=== PATIENT | female | born 1980 | race Asian ===

== ENCOUNTER 2020-03-28 10:38 | Emergency (ER) | payer MEDICAID ==
[~2020-03-28] VITALS: Ht 152.4 cm; Wt 64.0 kg
[2020-03-28 11:22] LABS: BASOPHILS % 0.3 % (0.0-2.0); EOSINOPHILS % 1.1 % (0.0-5.0); HEMATOCRIT. 25.9 % (36.0-48.0); HEMOGLOBIN. 7.9 g/dL (12.0-16.0); MEAN CORPUSCULAR HEMOGLOBIN 19.7 pg (28.0-32.0); MEAN CORPUSCULAR VOLUME 64.7 fL (81.0-99.0); MONOCYTES % 6.8 % (2.0-8.0); NEUTROPHILS % 67.8 % (40.0-76.0); PLATELET 423 x1000/uL (130-400); RED CELL DISTRIBUTION WIDTH 18.7 % (11.6-14.6)
[2020-03-28 11:28] LABS: CHLORIDE 106 mEq/L (98-107)
[2020-03-28] MEDS ORDERED: KETOROLAC 30MG/ML VIAL IV STA (11:28)
[2020-03-28] MEDS ORDERED: SODIUM CHLORIDE 0.9% 1,000 ML IV ONE (11:28)
[2020-03-28 11:31] LABS: PROTHROMBIN TIME 10.3 sec (9.6-11.0)
[2020-03-28 11:40] LABS: ETHANOL BLOOD < 10 mg/dL
[2020-03-28 11:52] LABS: HCG SCREEN NEGATIVE
[2020-03-28 12:48] LABS: CLARITY URINE CLOUDY (CLEAR); COLOR URINE YELLOW (YELLOW); KETONES URINE NEGATIVE (NEGATIVE); LEUKOCYTE ESTERASE URINE 1+ (NEGATIVE); NITRITE URINE NEGATIVE (NEGATIVE); OCCULT BLOOD URINE 3+ (NEGATIVE); PROTEIN URINE NEGATIVE (NEGATIVE); SPECIFIC GRAVITY URINE 1.015 (1.005-1.030); UROBILINOGEN URINE 0.2 E.U./dL (0.2-1.0)
[2020-03-28] MEDS ORDERED: CEFTRIAXONE 1 G PREMIX 50 ML IV ONE (13:30)
[2020-03-28 13:35] LABS: *AMPHETAMINES SCREEN URINE NEGATIVE (NEGATIVE); *BARBITURATES SCREEN URINE NEGATIVE (NEGATIVE); *BENZODIAZEPINES SCREEN URINE NEGATIVE (NEGATIVE); *COCAINE SCREEN URINE NEGATIVE (NEGATIVE); METHADONE URINE SCREEN NEGATIVE (NEGATIVE); PHENCYCLIDINE URINE SCREEN NEGATIVE (NEGATIVE)
[2020-03-28 13:36] LABS: CANNABINOID URINE SCREEN NEGATIVE (NEGATIVE)
[2020-03-28 13:42] LABS: OPIATES URINE SCREEN NEGATIVE (NEGATIVE)
[2020-03-28 13:43] LABS: PLATELET ESTIMATE SLIGHTLY INCREASED
[2020-03-28 16:45] VITALS: BP 104/70
== END 2020-03-28 17:23 | disposition home or self-care (01) ==
LOC: ER 10:38
DX: S90.112A Contusion of left great toe without damage to nail, initial encounter (principal); R10.9 Unspecified abdominal pain; Z98.890 Other specified postprocedural states; X58.XXXA Exposure to other specified factors, initial encounter; Y93.89 Activity, other specified; Y92.89 Other specified places as the place of occurrence of the external cause; Y99.8 Other external cause status
CPT/HCPCS: 36415; 73660; 74176; 80053; 80305; 80320; 81003; 81025; 83690; 84703; 85025; 85610; 93005; 96361; 96365; 96375; 99285; J0696; J1885; J7030; G0480

== ENCOUNTER 2021-04-16 22:54 | Emergency (ER) | payer MEDICAID, OTHER ==
[~2021-04-16] VITALS: Ht 165.1 cm; Wt 68.0 kg
[2021-04-17] MEDS ORDERED: KETOROLAC 30MG/ML VIAL IV STA (00:59)
[2021-04-17] MEDS ORDERED: SODIUM CHLORIDE 0.9% 1,000 ML IV ONE (01:00)
[2021-04-17 01:24] LABS: BASOPHILS % 0.3 % (0.0-2.0); EOSINOPHILS % 2.9 % (0.0-5.0); HEMATOCRIT. 33.2 % (36.0-48.0); HEMOGLOBIN. 11.1 g/dL (12.0-16.0); LYMPHOCYTES % 26.2 % (20.0-50.0); MEAN CORPUSCULAR HEMOGLOBIN 26.4 pg (28.0-32.0); MEAN CORPUSCULAR VOLUME 78.9 fL (81.0-99.0); MEAN PLATELET VOLUME 7.4 fl (7.4-10.4); MONOCYTES % 6.9 % (2.0-8.0); NEUTROPHILS % 63.7 % (40.0-76.0); PLATELET 304 x1000/uL (130-400); RED BLOOD CELL COUNT 4.21 mill/uL (4.2-5.4); RED CELL DISTRIBUTION WIDTH 16.9 % (11.6-14.6)
[2021-04-17 01:31] LABS: CHLORIDE 107 mEq/L (98-107)
[2021-04-17 01:36] LABS: CLARITY URINE CLOUDY (CLEAR); COLOR URINE YELLOW (YELLOW); KETONES URINE TRACE (NEGATIVE); LEUKOCYTE ESTERASE URINE NEGATIVE (NEGATIVE); NITRITE URINE NEGATIVE (NEGATIVE); OCCULT BLOOD URINE NEGATIVE (NEGATIVE); PROTEIN URINE NEGATIVE (NEGATIVE); SPECIFIC GRAVITY URINE 1.027 (1.005-1.030); UROBILINOGEN URINE 0.2 E.U./dL (0.2-1.0)
[2021-04-17 01:37] LABS: HCG SCREEN NEGATIVE
[2021-04-17] MEDS ORDERED: IBUP-2029 MT ×2 (04:25)
[2021-04-17 04:40] VITALS: BP 129/84
[2021-05-17] MEDS ORDERED: HYDR-4001 PO (15:36)
[2021-05-20] MEDS ORDERED: IBUP-2029 MT (09:00)
== END 2021-04-17 04:41 | disposition home or self-care (01) ==
LOC: ER 22:54
DX: N83.202 Unspecified ovarian cyst, left side (principal); I49.9 Cardiac arrhythmia, unspecified; Z98.890 Other specified postprocedural states
CPT/HCPCS: 36415; 76830; 76856; 80053; 81003; 81025; 83690; 84703; 85025; 93005; 96361; 96374; 99284; J1885; J7030

== ENCOUNTER → 2021-05-15 | Outpatient (CLI) | payer OTHER ==
[~2021-05-15] MED LIST: HYDR-4001 PO; IBUP-2029 MT
== END | disposition home or self-care (01) ==
LOC: LAB 10:55
PROVIDERS: ATTEND Obstetrics & Gynecology
DX: Z01.812 Encounter for preprocedural laboratory examination (principal); Z20.822 Contact with and (suspected) exposure to COVID-19
CPT/HCPCS: 87426

== ENCOUNTER 2021-11-29 01:46 | Emergency (ER) | payer MEDICAID, OTHER ==
[~2021-11-29] VITALS: Ht 162.6 cm; Wt 63.1 kg
[2021-11-29] MEDS ORDERED: ONDANSETRON HCL 4MG/2ML INJ IV ONE (04:15)
[2021-11-29] MEDS ORDERED: MORPHINE SULFATE 4 MG/ML CPJ (NOT FOR IM USE) IV ONE (04:15)
[2021-11-29 04:23] LABS: BASOPHILS % 0.2 % (0.0-2.0); EOSINOPHILS % 3.2 % (0.0-5.0); HEMATOCRIT. 31.2 % (36.0-48.0); HEMOGLOBIN. 10.1 g/dL (12.0-16.0); LYMPHOCYTES % 28.2 % (20.0-50.0); MEAN CORPUSCULAR HEMOGLOBIN 24.6 pg (28.0-32.0); MEAN CORPUSCULAR VOLUME 76.3 fL (81.0-99.0); MEAN PLATELET VOLUME 7.1 fl (7.4-10.4); MONOCYTES % 8.3 % (2.0-8.0); NEUTROPHILS % 60.1 % (40.0-76.0); PLATELET 323 x1000/uL (130-400); RED BLOOD CELL COUNT 4.09 mill/uL (4.2-5.4); RED CELL DISTRIBUTION WIDTH 16.8 % (11.6-14.6)
[2021-11-29 04:43] LABS: CHLORIDE 107 mEq/L (98-107)
[2021-11-29 06:50] LABS: HCG SCREEN NEGATIVE
[2021-11-29] MEDS ORDERED: TOPUD PO (07:45)
[2021-11-29 08:15] VITALS: BP 128/83
== END 2021-11-29 08:43 | disposition home or self-care (01) ==
LOC: ER 01:46
DX: N83.292 Other ovarian cyst, left side (principal)
CPT/HCPCS: 36415; 74176; 76830; 76856; 80053; 84703; 85025; 96374; 96375; 99284; J2270; J2405

== ENCOUNTER 2023-06-08 19:03 | Emergency (ER) | payer MEDICAID, OTHER ==
[~2023-06-08] VITALS: Ht 162.6 cm; Wt 66.0 kg
[~2023-06-08 19:03] MED LIST changes: +TOPUD PO
[2023-06-08 19:13] VITALS: O2SAT 98
[2023-06-08 19:58] LABS: BASOPHILS % 0.3 % (0.0-2.0); EOSINOPHILS % 1.4 % (0.0-5.0); HEMATOCRIT. 37.2 % (36.0-48.0); HEMOGLOBIN. 12.5 g/dL (12.0-16.0); LYMPHOCYTES % 29.2 % (20.0-50.0); MEAN CORPUSCULAR HEMOGLOBIN 30.4 pg (28.0-32.0); MEAN CORPUSCULAR HGB CONC 33.7 g/dL (31.0-37.0); MEAN CORPUSCULAR VOLUME 90.1 fL (81.0-99.0); MEAN PLATELET VOLUME 7.3 fl (7.4-10.4); MONOCYTES % 5.5 % (2.0-8.0); NEUTROPHILS % 63.6 % (40.0-76.0); PLATELET 274 x1000/uL (130-400); RED BLOOD CELL COUNT 4.13 mill/uL (4.2-5.4); RED CELL DISTRIBUTION WIDTH 12.2 % (11.6-14.6); WHITE BLOOD COUNT 8.6 x1000/uL (4.5-11.0)
[2023-06-08 20:06] LABS: CHLORIDE 104 mEq/L (98-107); INDEX HEMOLYSI 1 (1-3); INDEX ICTERIC 1 (1-4); INDEX LIPEMIC 1 (1-3); POTASSIUM 3.6 mEq/L (3.5-5.1); SODIUM 137 mEq/L (136-145)
[2023-06-08 20:09] LABS: CLARITY URINE CLEAR (CLEAR); COLOR URINE YELLOW (YELLOW); GLUCOSE URINE NEGATIVE (NEGATIVE); KETONES URINE NEGATIVE (NEGATIVE); LEUKOCYTE ESTERASE URINE NEGATIVE (NEGATIVE); NITRITE URINE NEGATIVE (NEGATIVE); OCCULT BLOOD URINE TRACE (NEGATIVE); PROTEIN URINE NEGATIVE (NEGATIVE); UROBILINOGEN URINE 0.2 E.U./dL (0.2-1.0)
[2023-06-08 20:13] LABS: BACTERIA URINE NONE SEEN; RBC URINE 0-2 /hpf (0-2); WBC URINE NONE SEEN /hpf (0-2); YEAST URINE NONE SEEN
[2023-06-08 20:27] LABS: ALANINE AMINOTRANSFERASE 27 IU/L (13-61); ALBUMIN 3.3 g/dL (3.4-5.0); ASPARTATE AMINOTRANSFERASE 14 IU/L (15-37); BILIRUBIN TOTAL 0.6 mg/dL (0.1-1.0); CALCIUM 8.4 mg/dL (8.5-10.1); CARBON DIOXIDE 30 mEq/L (21-32); CREATININE 0.7 mg/dL (0.6-1.3); GLUCOSE 143 mg/dL (70-105); PROTEIN TOTAL 7.4 g/dL (6.0-8.3); UREA NITROGEN BLOOD 11 mg/dL (7-21)
[2023-06-08 22:14] LABS: PROTHROMBIN TIME 10.4 sec (9.6-11.0)
[2023-06-08 22:16] LABS: HCG SCREEN NEGATIVE
[2023-06-08] MEDS ORDERED: KETOROLAC 30MG/ML VIAL IM ONE (22:30)
[2023-06-08 22:45] LABS: MUCUS URINE 2+ /lpf (< = 2+); SQUAMOUS EPITHELIAL CELL URINE 2+ /lpf (RARE/1+)
[2023-06-08 22:46] LABS: CALCIUM OXALATE CRYSTALS URINE 2+ /lpf
[2023-06-09] MEDS ORDERED: KETOROLAC 30MG/ML VIAL IM NR (02:00)
[2023-06-09 02:01] VITALS: TEMP 98
[2023-06-09 02:04] VITALS: BP 129/56; PULSE 78; RESP 18
== END 2023-06-09 02:00 | disposition home or self-care (01) ==
LOC: ER 19:24
DX: N83.202 Unspecified ovarian cyst, left side (principal); R10.2 Pelvic and perineal pain; Z98.890 Other specified postprocedural states
CPT/HCPCS: 80053; 81003; 84703; 83690; 85025; 85610; 36415; 76830; 76856; 93005; 99285; 96372; J1885; Z7610

== ENCOUNTER 2023-09-08 23:10 | Emergency (ER) | payer OTHER ==
[~2023-09-08] VITALS: Ht 157.5 cm; Wt 64.3 kg
[2023-09-09 00:02] VITALS: BP 142/83; PULSE 76; RESP 18; TEMP 98.3; O2SAT 100
[2023-09-09 00:41] LABS: BASOPHILS % 0.3 % (0.0-2.0); EOSINOPHILS % 2.2 % (0.0-5.0); HEMATOCRIT. 37.2 % (36.0-48.0); HEMOGLOBIN. 12.5 g/dL (12.0-16.0); LYMPHOCYTES % 34.8 % (20.0-50.0); MEAN CORPUSCULAR HEMOGLOBIN 29.7 pg (28.0-32.0); MEAN CORPUSCULAR HGB CONC 33.6 g/dL (31.0-37.0); MEAN CORPUSCULAR VOLUME 88.3 fL (81.0-99.0); MEAN PLATELET VOLUME 7.5 fl (7.4-10.4); MONOCYTES % 5.9 % (2.0-8.0); NEUTROPHILS % 56.8 % (40.0-76.0); PLATELET 293 x1000/uL (130-400); RED BLOOD CELL COUNT 4.21 mill/uL (4.2-5.4); RED CELL DISTRIBUTION WIDTH 12.8 % (11.6-14.6); WHITE BLOOD COUNT 6.7 x1000/uL (4.5-11.0)
[2023-09-09 01:00] LABS: HCG SCREEN NEGATIVE
[2023-09-09 01:02] LABS: ALANINE AMINOTRANSFERASE 13 IU/L (10-49); ALBUMIN 4.2 g/dL (3.2-4.8); ASPARTATE AMINOTRANSFERASE 15 IU/L (<34); BILIRUBIN TOTAL 0.3 mg/dL (0.1-1.0); CARBON DIOXIDE 27 mEq/L (21-32); CHLORIDE 106 mEq/L (98-107); CREATININE 0.7 mg/dL (0.6-1.0); GLUCOSE 122 mg/dL (70-105); POTASSIUM 3.6 mEq/L (3.5-5.1); PROTEIN TOTAL 7.5 g/dL (6.0-8.3); SODIUM 139 mEq/L (136-145); UREA NITROGEN BLOOD 12 mg/dL (9-23)
== END 2023-09-09 08:19 | disposition left against medical advice (07) ==
LOC: ER 23:10
DX: R10.9 Unspecified abdominal pain (principal); Z53.21 Procedure and treatment not carried out due to patient leaving prior to being seen by health care provider
CPT/HCPCS: 36415; 80053; 84703; 85025; 99281

== ENCOUNTER 2024-11-30 23:53 | Emergency (ER) | payer OTHER ==
[~2024-11-30] VITALS: Ht 149.9 cm; Wt 64.0 kg
[2024-12-01 00:09] VITALS: O2SAT 99
[2024-12-01 00:30] LABS: BASOPHILS % 0.3 % (0.0-2.0); CHLORIDE 108 mEq/L (98-107); DIFFERENTIAL COMMENT 0; EOSINOPHILS % 1.5 % (0.0-5.0); HEMATOCRIT. 30.5 % (36.0-48.0); HEMOGLOBIN. 9.8 g/dL (12.0-16.0); LYMPHOCYTES % 32.7 % (20.0-50.0); MEAN CORPUSCULAR HEMOGLOBIN 24.8 pg (28.0-32.0); MEAN CORPUSCULAR HGB CONC 32.3 g/dL (31.0-37.0); MEAN CORPUSCULAR VOLUME 76.6 fL (81.0-99.0); MEAN PLATELET VOLUME 7.5 fl (7.4-10.4); MONOCYTES % 7.6 % (2.0-8.0); NEUTROPHILS % 57.9 % (40.0-76.0); PLATELET 311 x1000/uL (130-400); POTASSIUM 3.9 mEq/L (3.5-5.1); RED BLOOD CELL COUNT 3.98 mill/uL (4.2-5.4); RED CELL DISTRIBUTION WIDTH 17.9 % (11.6-14.6); SODIUM 140 mEq/L (136-145)
[2024-12-01 00:31] LABS: CARBON DIOXIDE 26 mEq/L (21-32)
[2024-12-01 00:36] LABS: CREATININE 0.7 mg/dL (0.6-1.0); GLUCOSE 131 mg/dL (70-105); UREA NITROGEN BLOOD 21 mg/dL (9-23)
[2024-12-01 00:38] LABS: ALANINE AMINOTRANSFERASE 16 IU/L (10-49); ALBUMIN 3.9 g/dL (3.2-4.8); ASPARTATE AMINOTRANSFERASE 15 IU/L (<34); BILIRUBIN DIRECT < 0.1 mg/dL (<=3.0); BILIRUBIN TOTAL 0.2 mg/dL (0.1-1.0)
[2024-12-01 01:13] LABS: HCG SCREEN NEGATIVE
[2024-12-01 01:16] LABS: TROPONIN I HIGH SENSITIVITY < 4 ng/L (3.0-34)
[2024-12-01] MEDS: KETOROLAC 30MG/ML VIAL IM ONE (05:42)
[2024-12-01] MEDS: ACETAMINOPHEN 500MG TABLET PO ONE (05:42)
[2024-12-01] MEDS ORDERED: NAPR-677 MT (05:47)
[2024-12-01 06:06] LABS: CLARITY URINE CLEAR (CLEAR); COLOR URINE YELLOW (YELLOW); GLUCOSE URINE NEGATIVE (NEGATIVE); KETONES URINE NEGATIVE (NEGATIVE); LEUKOCYTE ESTERASE URINE NEGATIVE (NEGATIVE); NITRITE URINE NEGATIVE (NEGATIVE); OCCULT BLOOD URINE NEGATIVE (NEGATIVE); PROTEIN URINE NEGATIVE (NEGATIVE); SPECIFIC GRAVITY URINE 1.021 (1.005-1.030); UROBILINOGEN URINE 0.2 E.U./dL (0.2-1.0)
[2024-12-01 06:10] VITALS: BP 125/65; PULSE 72; RESP 16; TEMP 36.9; O2SAT 99
== END 2024-12-01 06:14 | disposition home or self-care (01) ==
LOC: ER 23:53
DX: R10.9 Unspecified abdominal pain (principal); Z79.899 Other long term (current) drug therapy; Z98.890 Other specified postprocedural states; Z79.1 Long term (current) use of non-steroidal anti-inflammatories (NSAID)
CPT/HCPCS: 99285; 36415; 93005; 76830; 76856; 80076; 80048; 81003; 84703; 83690; 85025; 84484; 96372; J1885